=== PATIENT | male | born 1960 | race Caucasian/White ===

== ENCOUNTER 2017-01-15 11:15 | Emergency (ER) | payer OTHER, MEDICAID ==
[2017-01-15] MEDS ORDERED: ONDANSETRON HCL 4 MG/2 ML VIAL ONE ×2 (11:56→17:21)
[2017-01-15] MEDS ORDERED: FENTANYL 100 MCG/2 ML VIAL ONE ×2 (11:56→17:20)
[2017-01-15] MEDS ORDERED: MORPHINE SULFATE 4 MG/ML SYR ONE (12:11)
[2017-01-15 12:16] LABS: BLOOD UREA NITROGEN 22 mg/dL (9-20); CALCIUM 10.1 mg/dL (8.4-10.2); CHLORIDE 100 mmol/L (98-107); EST GLOMERULAR FILTRATION RATE 48 mL/min; GLUCOSE 154 mg/dL (70-100); POTASSIUM 3.7 mmol/L (3.5-5.1); SODIUM 138 mmol/L (137-145)
[2017-01-15 12:17] LABS: C-REACTIVE PROTEIN > 90.0 mg/L (<10.0)
[2017-01-15 12:18] LABS: HEMOGLOBIN 13.4 g/dL (14.0-18.0); MEAN CELL VOLUME 83.9 fL (80.0-100.0); MEAN CORPUS. HGB CONCENTRATION 34.4 g/dL (32.0-36.0); MEAN CORPUSCULAR HEMOGLOBIN 28.8 pg (29.0-35.0); MEAN PLATELET VOLUME 9.9 fL (7.4-10.4); PLATELET COUNT 191 X 10^3uL (130-440); RED BLOOD COUNT 4.65 X 10^6uL (4.20-6.10); RED CELL DISTRIBUTION WIDTH 13.3 % (11.5-14.5); WHITE BLOOD COUNT 13.1 X 10^3uL (3.9-10.7)
[2017-01-15 12:20] LABS: BAND% (Manual) 6 % (0.0-1.0); BASOPHIL % (Manual) 0 % (0.0-2.0); EOSINOPHIL % (Manual) 0 % (0.0-6.0); LYMPHOCYTE % (Manual) 5 % (20.0-40.0); MONOCYTE % (Manual) 9 % (2.0-10.0); NEUTROPHIL % (Manual) 80 % (54.0-75.0); OVALOCYTES PRESENT; PLATELET ESTIMATE ADEQUATE
[2017-01-15 12:30] LABS: ERYTHROCYTE SEDIMENTATION RATE 80 MM/HR (0-10)
[2017-01-15] MEDS ORDERED: VANCOMYCIN HCL 1,500 MG in NORMAL SALINE 250 ML IV ONE (13:15)
[2017-01-15 13:37] LABS: FLUID COLOR TUBE 1 YELLOW (COLORLESS)
--- NOTE | 2017-01-15 13:37 | ER PHYSICIAN DOCUMENTATION ---
Physician Documentation [facility] Name:Shashi Mak Age:56 yrs Sex:Male :1960 Arrival Date:01/15/2017 Time:11:15 Bed6 Private MD:Cindy Rodríguez ED, John Disposition: 01/15/17 12:48 Transfer ordered to [facility]. Diagnosis is Unspecified Joint Effusion - septic joint. - Reason for transfer: Specialty. - Accepting physician is Dr. Liang. - Condition is Serious. - Problem is new. - Symptoms have worsened. COBRA Form completed? Yes Transfer - Mode of Transportation Ambulance HPI: 01/15 12:34 This 56 yrs old Male presents to ER via EMS with complaints of Knee Pain - jm LEFT. 12:34 The patient presents with decreased range of motion, pain. The complaints affect the jm left knee. Context: resulted from a chronic condition. Onset: The symptom(s)/episode began/occurred 1 week(s) ago, and became worse today. Modifying factors: the symptoms are aggravated by nothing. movement, weight bearing. Associated signs and symptoms: Pertinent positives: swelling, warmth, Pertinent negatives fever. Treatment prior to arrival includes: no previous treatment. Severity of symptoms: in the emergency department the symptoms are actually worse. The patient has not experienced similar symptoms in the past. The patient has been recently seen by a physician: Dr. Andrade, a few weeks back. He was worried about an impending periprosthetic fx after looking at the xrays. He referred him to a joint replacement specialist. He has not yet seen one. . Pt w progressive L knee pain over the past week, but much worse today where he cannot walk. Pt called 911. No fever. Pt's had multiple revisions of that knee including MRSA infections. This was at least 6 years ago. . Historical: - Allergies: SULFA (SULFONAMIDES); - Home Meds: 1. pantoprazole 40 mg oral grps 1 packet once daily 2. Amoxicillin Oral 3. venlafaxine 100 mg oral tab 1 tab 2 times per day with food 4. Triamcinolone Acetonide Topical 5. Methadone Oral 6. Potassium Chloride Oral 7. furosemide 80 mg oral tab 1 tab 2 times per day 8. spironolactone 25 mg oral tab 1 tab once daily 9. metoprolol tartrate 100 mg oral tab 1 tab 2 times per day 10. aspirin 81 mg oral tab 1 tab once daily - PMHx: ATRIAL FIB; ANEMIA; ARTHRITIS; radiculopathy L/S; osteopenia; hepatic encephalopathy; CHF; HYPERTENSION; GERD; CHRONIC PAIN; RENAL DISEASE; DEPRESSION; venous stasis; - PSHx: MITRAL VALVE REPLACEMENT; tricuspid valve repair; KNEE SURGERY; portocaval shunt; - Tetanus: < 10 years. - Ebola Screening: : Patient denies exposure to infectious person. Patient denies travel to an Ebola-affected area in the 21 days before illness onset. . - Social history: Smoking status: Patient states former smoker of tobacco. Patient/guardian denies using alcohol, marijuana. ROS: 12:37 Constitutional: Negative for fever. 12:37 MS/extremity: Positive for decreased range of motion, pain, swelling, tenderness. 12:37 Skin: Positive for swelling. 12:37 Neuro: Positive for gait disturbance. 12:37 All other systems are negative. Exam: 12:38 Constitutional: The patient appears alert, awake. 12:38 Eyes: Periorbital structures: appear normal, Conjunctiva: normal. 12:38 ENT: Mouth: is normal, Posterior pharynx: is normal. 12:38 Cardiovascular: Rate: normal, Rhythm: regular. 12:42 Respiratory: the patient does not display signs of respiratory distress, Respirations: normal. 12:42 Abdomen/GI: Bowel sounds: normal, Palpation: abdomen is soft and non-tender. 12:42 Back: pain, is absent, CVA tenderness, is absent. 12:42 Musculoskeletal/extremity: Pulses: Dopplerable pulses on the L PT and DP. , Sensation intact. Joints: the left knee displays effusion, pain at rest, painful range of motion, swelling, tenderness, warmth, Weight bearing: is unable to bear weight. 12:42 Skin: cellulitis, is not appreciated, no rash present. 12:42 Neuro: Mentation: is normal, Memory: is normal. 12:42 Psych: Behavior/mood is pleasant, cooperative, Affect is calm. Vital Signs: 11:28 BP 100 / 67; Pulse 103; Resp 18; Temp 98.4; Pulse Ox 99% on 2 lpm NC; Pain 6/10; st 12:40 Temp 99.5; st 12:44 Weight 108.86 kg; Height 6 ft. 2 in. (187.96 cm); st 13:00 Pain 6/10; st 13:00 BP 92 / 56 (auto/); st 13:05 Pulse 104; Pulse Ox 98% ; st 12:44 Body Mass Index 30.81 (108.86 kg, 187.96 cm) st 11:[address] Procedures: 12:44 Joint Treatment: Arthorcentesis done by Dr. Andrade, who pulled out satish pus. MDM: 11:20 Patient medically screened. 12:45 Differential diagnosis: septic joint. Data reviewed: vital signs, nurses notes, old medical records, lab test result(s), and as a result, I will *Transfer Patient. Counseling: I had a detailed discussion with the patient and/or guardian regarding: the historical points, exam findings, and any diagnostic results supporting the discharge/admit diagnosis, lab results, the need to transfer to another facility, [facility] not [facility] the required specialist. Physician consultation: Arjun Andrade MD regarding need to come to ED to see patient, and will see patient immediately, after a discussion of the case, a recommendation for transfer for higher level of care is made, would like further tests performed, gramstain, culture, and cell count of aspirate. . ED course: Pt w satish pus on aspiration. Labs show signs of infection. Pt will need to be transferred to [facility] for joint replacement specialist. . 01/15 12:19 Order name: CBC WITHOUT A DIFFERENTIAL; Complete Time: 12:31 EDWV 01/15 12:19 Order name: BASIC METABOLIC PANEL; Complete Time: 12:31 EDWV 01/15 12:19 Order name: C-REACTIVE PROTEIN; Complete Time: 12:31 EDWV 01/15 12:21 Order name: MANUAL DIFFERENTIAL; Complete Time: 12:31 EDWV 01/15 12:31 Order name: ERYTHROCYTE SEDIMENTATION RATE; Complete Time: 12:31 EDWV 01/15 13:37 Order name: WBC COUNT, BODY FLUID; Complete Time: 14:35 EDWV 01/15 13:46 Order name: WOUND CULTURE AND GRAM STAIN EDWV 01/16 12:06 Order name: BLOOD CULTURE EDWV 01/16 12:06 Order name: BLOOD CULTURE EDWV 01/17 08:00 Order name: GRAM POSITIVE COMBO 34 EDMS Dispensed Medications: 12:01 Drug: morphine 4 mg; Route: IVP; Site: right antecubital; st 12:29 Follow up: Response: Pain is decreased st 13:15 Drug: Vancocin 1.5 grams; Route: IVPB; Infused Over: 2 hrs; Site: right antecubital; st 13:36 Follow up: IV Status: Infusing continued upon transfer st Signatures: Candelaria Tsang RN RN Gamal Boothe MD MD jm
--- NOTE | 2017-01-15 13:37 | ER NURSING DOCUMENTATION ---
Nurse's Notes [facility] Name:Shashi Mak Age:56 yrs Sex:Male :1960 Arrival Date:01/15/2017 Time:11:15 Bed6 Private MD:Cindy Rodríguez Diagnosis:Unspecified Joint Effusion-septic joint Presentation: 01/15 11:23 Presenting complaint: Patient states: pt had a left knee replacement [address] yesterday it was uncomfortable. This AM he states "it does not feel right" he has been unable to bear weight. Increased pain and swelling. Transition of care: Home. 11:23 Acuity: CAPR[facility] 3 st 11:23 Method Of Arrival: EMS: 410 st 11:23 Care prior to arrival: IV initiated. Medication(s) given: Fentanyl 100MCG Zofran 4mg st IVP. Triage Assessment: 11:26 General: Appears in no apparent distress, Behavior is cooperative. Pain: Complains of st pain in left knee Pain currently is 6 out of 10 on a pain scale. At worst was 10 out of 10 on a pain scale. Pain began woke up in pain. Cardiovascular: No deficits noted. Respiratory: No deficits noted. GI: No deficits noted. Musculoskeletal: Circulation, motion, and sensation intact Swelling present in left knee. Historical: - Allergies: SULFA (SULFONAMIDES); - Home Meds: 1. pantoprazole 40 mg oral grps 1 packet once daily 2. Amoxicillin Oral 3. venlafaxine 100 mg oral tab 1 tab 2 times per day with food 4. Triamcinolone Acetonide Topical 5. Methadone Oral 6. Potassium Chloride Oral 7. furosemide 80 mg oral tab 1 tab 2 times per day 8. spironolactone 25 mg oral tab 1 tab once daily 9. metoprolol tartrate 100 mg oral tab 1 tab 2 times per day 10. aspirin 81 mg oral tab 1 tab once daily - PMHx: ATRIAL FIB; ANEMIA; ARTHRITIS; radiculopathy L/S; osteopenia; hepatic encephalopathy; CHF; HYPERTENSION; GERD; CHRONIC PAIN; RENAL DISEASE; DEPRESSION; venous stasis; - PSHx: MITRAL VALVE REPLACEMENT; tricuspid valve repair; KNEE SURGERY; portocaval shunt; - Tetanus: < 10 years. - Ebola Screening: : Patient denies exposure to infectious person. Patient denies travel to an Ebola-affected area in the days before illness onset. . - Social history: Smoking status: Patient states former smoker of tobacco. Patient/guardian denies using alcohol, marijuana. Screenin:29 Infectious Disease Risk None. Abuse screen: Denies threats or abuse. Denies injuries st from another. Nutritional screening: No deficits noted. Assessment: 12:08 General: Dr. Andrade at bedside to tap the knee. . st Vital Signs: 11:28 BP 100 / 67; Pulse 103; Resp 18; Temp 98.4; Pulse Ox 99% on 2 lpm NC; Pain 6/10; st 12:40 Temp 99.5; st 12:44 Weight 108.86 kg; Height 6 ft. 2 in. (187.96 cm); st 13:00 Pain 6/10; st 13:00 BP 92 / 56 (auto/); st 13:05 Pulse 104; Pulse Ox 98% ; st 12:44 Body Mass Index 30.81 (108.86 kg, 187.96 cm) st 11:[address] ED Course: 11:17 Patient arrived in ED. jl 11:17 Cindy Rodríguez MD is Private Physician. jl 11:21 Gamal Demarco MD is Attending Physician. jm 11:23 Candelaria Tsang RN is Primary Nurse. st 11:[address] 11:29 Valuables Remains with patient Patient has correct armband on for positive st identification. Bed in low position. Side rails up X2. Ice pack to injury. 11:54 First set of blood cultures drawn Second set of blood cultures drawn by Lab staff. st 12:28 Assist Provider knee aspiration. 50ml of satish puss. st 12:[address] Administered Medications: 12:01 Drug: morphine 4 mg; Route: IVP; Site: right antecubital; st 12:29 Follow up: Response: Pain is decreased st 13:15 Drug: Vancocin 1.5 grams; Route: IVPB; Infused Over: 2 hrs; Site: right antecubital; st 13:36 Follow up: IV Status: Infusing continued upon transfer st Outcome: 12:44 Transferred: Patient will be transferred to: [facility]. Facility lpr Acceptance Time: January 15, 2017 at 12:45 Patient's face sheet was faxed to accepting facility. Face Sheet included patient's name, address, age, gender, contact information and insurance information. 12:48 ER care complete, transfer ordered by MD. easton 13:27 Report given to Cindy fierro 13:36 Transferred: Patient will be transported by: [facility] ground. Nurse and Physician st Charting and Notes were sent to Accepting Facility. All tests and/or procedures with results, if applicable, were sent to accepting facility. 13:36 Condition: stable 13:36 Instructed on need for transfer 13:36 Patient [address] the ED. st Signatures: Candelaria Tsang, RN Gamal Valdes MD MD jm Roberts, Leslie, RN RN lpr Lietz, Jeff jl
--- NOTE | 2017-01-15 18:20 | CONSULTATION ---
DATE OF CONSULTATION: 01/15/17 REFERRING PHYSICIAN: Gamal Demarco MD RESPIRATORY COORDINATOR: Arjun Andrade MD CHIEF COMPLAINT: Increasing pain and swelling in the left knee with underlying knee replacement. HISTORY OF PRESENT ILLNESS: Thank you for asking me to evaluate this patient. As you know, he is a 56-year-old male with a very complicated past medical history, who underwent left total knee arthroplasty about 6 years ago that was performed elsewhere. His postoperative course was complicated by infection of his prosthesis, and he underwent explantation, followed by treatment with IV antibiotics, and then revision arthroplasty about 6 weeks later. Since that time he has done fairly well overall, although he does have chronic pain in that knee. We did recently see him in the clinic with tibial pain, at which time it was noted that he has a long stem tibial component of his prosthesis and that there is thinning of the anterolateral tibial cortex. However, in the past few days, he has had increasing pain in the knee itself with considerable difficulty ambulating. He was brought into the Emergency Department where he was noted to have some warmth of that knee as well as an effusion. We were therefore called to evaluate him and consider aspiration of the knee. PAST MEDICAL HISTORY 1. Chronic pain and narcotic use with narcotic dependence. 2. Mitral regurgitation, status post mitral valve repair. 3. Chronic heart failure. 4. Hyperlipidemia. 5. Atrial fibrillation. 6. Hypertension. 7. Sleep apnea. 8. Migraine headaches. 9. Gout. PAST SURGICAL HISTORY 1. Total knee arthroplasty as previously noted with subsequent revision arthroplasty due to infection. 2. He also has a history of glenohumeral arthrosis. MEDICATIONS Methadone. Triamcinolone cream. Venlafaxine. Pantoprazole. Lasix. Spironolactone. Metoprolol. Calcium supplement. ALLERGIES: Sulfa. Hydrocodone. FAMILY HISTORY: Noncontributory. SOCIAL HISTORY: The patient as previously noted is a chronic pain patient and denies alcohol use. He is a former smoker who reports that he quit in 2015. REVIEW OF SYSTEMS: Remarkable for sensation of fever at home, although he is not sure as to his temperature. He has not had any explained weight loss or other recent illness and review of systems is otherwise noncontributory. PHYSICAL EXAMINATION GENERAL: A frail-appearing male who is no apparent distress. Alert and oriented x3. LEFT LOWER EXTREMITY: He does have 1+ effusion in the left knee. There is warmth but no erythema. He has a well-healed incisional scar from his previous surgery. He has range of motion from 0 to just over 45 degrees, with increased pain with flexion of the knee. He has diffuse discoloration in his lower legs, consistent with chronic vascular disease. He is diffusely tender to palpation in the knee especially superior to the knee and in the region of the patellofemoral joint. IMAGING: I reviewed his most recent radiographs which revealed an underlying total knee arthroplasty with long stem tibial and femoral components, cemented into the metathesis. There is a little bit of lucency around the proximal aspect of the tibial component, and as previously noted, there is thinning of the tibial cortex at the anterior lateral aspect where the tip of the stem abuts against the tibial shaft. There is no evidence of loosening of the femoral component. LABS: The patient underwent sedimentation rate and C-reactive protein in the Emergency Department. The sedimentation rate was elevated to 80 with an elevated C-reactive protein greater than 90. IMPRESSION: Periprosthetic infection, with septic arthritis of the left knee in an underlying knee replacement prosthesis. PLAN/RECOMMENDATIONS: We discussed this with the patient and recommended aspiration of his knee to verify the diagnosis. The patient did agree to proceed , and so the knee joint was aspirated under meticulous sterile prep. The aspirated yielded 50 mL of grossly purulent fluid that was sent to the lab for cell count, gram stain and culture. Due to the fact that he is grossly infected , and has an underlying cemented revision knee prosthesis. He will require a fairly extensive procedure for explanation and treatment of his underlying infection. Due to his multiple medical problems, as well as the nature of his underlying prosthesis, this is clearly better off done at a larger facility. Therefore, he is to be transferred for definitive management. Thank you again for asking me to evaluate this patient. Copies to: Gamal Demarco MD [facility]
== END 2017-01-15 13:37 | disposition short-term general hospital (02) ==
LOC: ER 11:15
DX: T84.54XA Infection and inflammatory reaction due to internal left knee prosthesis, initial encounter (principal); M25.462 Effusion, left knee; M00.9 Pyogenic arthritis, unspecified; B95.61 Methicillin susceptible Staphylococcus aureus infection as the cause of diseases classified elsewhere; M00.062 Staphylococcal arthritis, left knee; Z96.652 Presence of left artificial knee joint; M79.89 Other specified soft tissue disorders; I10 Essential (primary) hypertension; I48.91 Unspecified atrial fibrillation; Z79.899 Other long term (current) drug therapy; Z79.82 Long term (current) use of aspirin; Z99.89 Dependence on other enabling machines and devices; Z99.81 Dependence on supplemental oxygen; Z74.3 Need for continuous supervision
CPT/HCPCS: 80048; 85027; 85651; 86140; 87040; 87070; 87077; 87186; 87205; 89051; 96365; 96375; 99285; A0425; A0427; J2270; J2405; J3010; J3370; J7050